=== PATIENT | male | born 1965 | race Hispanic/Latino ===

== ENCOUNTER 2019-01-04 07:37 | Emergency (ER) | payer OTHER ==
[2019-01-04] MEDS ORDERED: Ketorolac Tromethamine 30 MG/ML VIAL ONE (09:02)
[2019-01-04] MEDS ORDERED: Fentanyl 250 MCG/5 ML VIAL ONE (10:02)
== END 2019-01-04 10:58 | disposition home or self-care (01) ==
LOC: ERS 07:37
DX: S22.41XA Multiple fractures of ribs, right side, initial encounter for closed fracture (principal); S60.112A Contusion of left thumb with damage to nail, initial encounter; S30.810A Abrasion of lower back and pelvis, initial encounter; R31.9 Hematuria, unspecified; I10 Essential (primary) hypertension; Z87.891 Personal history of nicotine dependence; Z79.899 Other long term (current) drug therapy; V89.2XXA Person injured in unspecified motor-vehicle accident, traffic, initial encounter
CPT/HCPCS: 11740; 96361; 96374; J1885; J3010